=== PATIENT | male | born 1995 | race Caucasian/White ===

== ENCOUNTER 2016-09-23 17:51 | Emergency (ER) | payer OTHER ==
[~2016-09-23] VITALS: Wt 101.5 kg
[~2016-09-23 17:51] MED LIST: CIPR500T4 PO; FAMO40TA52 PO; ONDA4TAB35 PO; TRAM-40 PO
--- NOTE | 2016-09-23 19:52 | RADRPT ---
PROCEDURE: XR left foot. CLINICAL INDICATION: Medial midfoot pain TECHNIQUE: AP, lateral and oblique views of the left foot were obtained. COMPARISON: None. FINDINGS: Mineralization is within normal limits. No fracture or osseous lesion is identified. There is no e vidence for dislocation. Mild narrowing of the articulation between the medial cuneiform and first metatarsal base in the area of pain is concerning for premature osteoarthrosis, tiny spurs in this l ocation. The soft tissues are unremarkable. There is no evidence for a radiopaque foreign body. IMPRESSION: Trace premature medial midfoot osteoarthrosis at the medial cuneiform and first metatarsal base of t he left foot is of concern. No evidence of acute osseous abnormality. RPTAT:HJJR Physician Breanne Date Time Electronically viewed and signed by Physician Breanne on 09/23/2016 19:52 /
[2016-09-23] MEDS ORDERED: IBUP-1542 PO (19:55)
[2016-09-23 20:31] VITALS: PULSE 69; RESP 20; TEMP 98.8
--- NOTE | 2016-10-03 10:49 | ERD ---
ER Documentation Chief Complaint Date/Time DATE: 10/03/16 TIME: 10:46 Chief Complaint L FOOT PAIN NON TRAUMATIC NO DEFORMITY , NO SWELLING. HPI This 21-year-old male presents with past 3-4 history of pain in his left forefoot. States he has history of possible stress fracture denies any recent injury. Denies restricted range of motion weakness. Denies any specific incident when the pain started although may have stepped awkwardly or walk excessively. ROS All systems reviewed and are negative except as per history of present illness. Medications Home Meds Active Scripts Ibuprofen* (Motrin*) 600 Mg Tab, 600 MG PO Q6, #20 TAB Prov:RAFAEL THAKUR MD 09/23/16 Tramadol Hcl* (Ultram*) 50 Mg Tablet, 50 MG PO Q6H Y for PAIN, #14 TAB Prov:MARIBELL FULLER. 08/20/15 Ondansetron Hcl* (Zofran* ODT) 4 mg -ODT Tab.disper, 4 MG PO Q6 Y for NAUSEA AND /OR VOMITING, #10 TAB Prov:MARIBELL FULLER 08/20/15 Ciprofloxacin Hcl* (Ciprofloxacin Hcl*) 500 Mg Tablet, 500 MG PO BID for 3 Days , TAB Prov:MARIBELL FULLER. 08/20/15 Famotidine* (Famotidine*) 40 Mg Tablet, 40 MG PO BID, #60 TAB Prov:KELSI LOZA PA-C 01/25/15 Allergies Allergies: Coded Allergies: No Known Drug Allergies (Verified Allergy, Unknown, 01/25/15) PMhx/Soc History of Surgery: No Anesthesia Reaction: No Hx Neurological Disorder: No Hx Respiratory Disorders: No Hx Cardiac Disorders: No Hx Psychiatric Problems: No Hx Miscellaneous Medical Probl: No Hx Alcohol Use: No Hx Substance Use: No Hx Tobacco Use: No Smoking Status: Never smoker Physical Exam Physical Exam , const: [] Alert, not ill-appearing. Head: Atraumatic Eyes: Normal Conjunctiva ENT: Normal External Ears, Nose and Mouth. Neck: Full range of motion..~ No meningismus. Resp: Clear to auscultation bilaterally Cardio: Regular rate and rhythm, no murmurs Abd: Soft, non tender, non distended. Normal bowel sounds Skin: No petechiae or rashes Back: No midline or flank tenderness Ext: No cyanosis, or edema. Left foot shows some tenderness across the third fourth fifth metatarsals. There is no deformities, restricted range of motion, bleeding or warmth lacerations Neur: Awake and alert Psych: Normal Mood and Affect Procedures/MDM X-ray Foot 3V Interpreted by me: Bones: [No fracture] Joints: [No dislocation] Foreign body: [None]. Patient had degenerative changes of the tarsometatarsal area of first tarsometatarsal area and cuneiform but no acute findings location of pain. Impression-trace degenerative changes no acute fracture dislocation. Patient examined relating without significant limp and mobilization was deferred. Patient will be treated with rest, ice and elevation instruction to follow-up with primary doctor this week. Signs and symptoms suggest likely tendinitis or sprain. There is no evidence to suggest septic arthritis, tenosynovitis, osteophytes. Patient should return for fevers, redness, new worsening symptoms. He should otherwise follow-up with primary doctor and possibly orthopedist for persistent pain next week. The patient was stable with no new complaints during the ER course. Clinically, there is no current evidence to suggest meningitis, sepsis, acute abdomen, pneumonia, acute coronary syndrome, pulmonary embolism, or any other emergent condition appearing to require further evaluation or hospitalization. The patient should certainly return for any new or worsening symptoms per the aftercare instructions. They should otherwise follow-up with her primary care doctor for reevaluation this week. Departure Diagnosis: Primary Impression: Foot pain Condition: Stable Patient Instructions: Sprain Foot, Tendonitis Additional Instructions: There is some mild degenerative changes in the proximal foot but not in the area of pain. Likely tendinitis. Recommend rest, ice and follow-up with orthopedist for persistent pain. Recheck sooner for redness, fevers, new symptoms. RAFAEL THAKUR MD Oct 03, 2016 10:49
== END 2016-09-23 20:25 | disposition home or self-care (01) ==
LOC: FTE 17:51
DX: M79.672 Pain in left foot (principal)